=== PATIENT | male | born 1960 | race African-American/Black ===

== ENCOUNTER 2016-12-12 05:39 | Observation (INO) | payer OTHER ==
--- NOTE | ~2016-12-12 | DS ---
Unit #: [id number] #: [id number] Patient: IMTIAZ SOTO [id number] [address] [place], [place] [address] [id number] MR#: [id number] NAME: IMTIAZ SOTO ROOM: 57 Age: 56 Sex: M Admission Date: 12/12/2016 : 1960 Discharge Date: 12/13/2016 Attending Physician: Christiano Germain M.D. Primary Care Physician: [facility] DISCHARGE SUMMARY ADMISSION DIAGNOSES 1. Chest pain. 2. History of arteriosclerotic heart disease. 3. History of DVT, pulmonary embolism January 2014 with recurrent bilateral PEs in August 2015. 4. Hypertension. 5. Benign prostatic hypertrophy. 6. Reported heart catheterization May 2016 at [facility]. Patient was taking Brilinta but was not certain if he had had a stent. DISCHARGE DIAGNOSES 1. Chest pain. 2. History of arteriosclerotic heart disease. 3. History of DVT, pulmonary embolism January 2014 with recurrent bilateral PEs in August 2015. 4. Hypertension. 5. Benign prostatic hypertrophy. 6. Reported heart catheterization May 2016 at [facility]. Patient was taking Brilinta but was not certain if he had had a stent. HISTORY Mr. Soto is a 56-year-old black male from [place]. In our conversation yesterday, patient told me that he underwent coronary catheterization at [facility]. Today, he tells me that he sees Dr. Tafoya, so we will have patient follow up with Dr. Tafoya. Myocardial infarction was ruled out with serial troponins this admission. Echocardiogram showed EF of 35% to 40%. Stress test was negative for ischemia. The patient was hypertensive. Medications were adjusted. Hydralazine was changed to 25 mg b.i.d. His beta lupe was changed to Coreg 6.25 mg b.i.d. and Protonix 40 mg daily was ordered. He will follow up with Dr. Tafoya in 2 to 3 weeks. Appointment was made for , 02/01/2017 at 13:[address] Tafoya. DISCHARGE MEDICATIONS 1. Flomax 0.4 mg daily. 2. Coumadin 5 mg daily. 3. Zyrtec 10 mg daily. 4. Lipitor 80 mg daily. Cholesterol profile was obtained which showed a cholesterol of 80, triglycerides 62, LDL 32, HDL 36. 5. Hydralazine 25 mg b.i.d. 6. Zestril 40 mg daily. 7. Singulair 10 mg daily. 8. Tramadol 50 mg as needed for pain. 9. Brilinta 90 mg b.i.d. Unit #: [id number] #: [id number] Patient: IMTIAZ SOTO 10. Imdur 60 mg daily. To note, I had asked for old records from [facility] and received none. Possibility that this patient's heart catheterization was actually done at [facility] and not at [facility]. Patient's hemoglobin A1c was 5.9. TSH was 1.72. Dictated by... Addie Bloom.P.R.N. for Cassius Levy M.D. CHI/ranjit TD: 12/13/2016 17:21 JOB #: [id number] DISCHARGE SUMMARY Page 1 of 1 X X DISCHARGE SUMMARY
--- NOTE | ~2016-12-12 | HP ---
Unit #: [id number] #: [id number] Patient: IMTIAZ SOTO [id number] [facility] [address] [facility]. [place], [place] [address] [id number] E MR#: [id number] NAME: IMTIAZ SOTO ROOM: Age: 56 Sex: M Admission Date: 12/12/2016 : 1960 Attending Physician: Abdifatah Shields M.D. Primary Care Physician: [facility] HISTORY AND PHYSICAL CHIEF COMPLAINT Chest pain. HISTORY OF PRESENT ILLNESS Mr. Soto is a 56-year-old male who presented with complaints of chest discomfort. He states that through the night he had discomfort that woke him up. It was a band-like squeezing across both sides of his chest radiating down his left arm with tingling in his fingers associated with nausea, no vomiting, and diaphoresis. He states it occurred four times through the night, each time lasting 5-10 minutes. He took a pillow, put it against his chest, and just sort of continued to squeeze his chest until eventually the pain went away. He did not take any medications at home to make it go away. He does have a reported allergy to aspirin so he has not received any aspirin in the emergency room. PAST MEDICAL HISTORY 1. Pulmonary embolism with DVT 01/2014 with anticoagulation for seven months. Then, he had a recurrent bilateral right lower lobe/left lower lobe segmental PE in August 2015. 2. Hypertension. 3. Benign prostatic hypertrophy. 4. Arteriosclerotic heart disease with coronary catheterization May 2016. The patient is unaware if he received a stent but he is on Brilinta so we will obtain old records. PAST SURGICAL HISTORY Coronary catheterization May 2016 at [facility]. ALLERGIES Aspirin and Tylenol. HOME MEDICATIONS 1. Imdur 60 mg daily. 2. Flomax 0.4 daily. 3. Lipitor 80 mg daily. 4. Metoprolol tartrate 25 mg twice daily. 5. Singulair 10 mg daily. 6. Tramadol 50 mg twice daily. 7. Zyrtec 10 mg daily. 8. Coumadin 5 mg daily. 9. Brilinta 90 mg twice a day. 10. Hydralazine 10 mg twice a day. 11. Lisinopril 40 mg daily. Unit #: [id number] #: [id number] Patient: IMTIAZ SOTO FAMILY HISTORY The patient denies family history of arteriosclerotic heart disease. No MIs, no diabetes, no hypertension. No premature . SOCIAL HISTORY The patient is originally from [place], lives in the company of his and children. He is a lifelong nonsmoker and he does not drink alcohol. REVIEW OF SYSTEMS Negative for fevers, negative for chills, negative for recent weight loss, weight gain. No cataracts, no glaucoma, no difficulty hearing, no difficulty swallowing, no productive cough, no asthma, no emphysema, no melena, no bright red bleeding per rectum, no constipation, no diarrhea, no hematuria, no dysuria. No difficulty walking except patient states that he does have some discomfort that remains with assisted walking from his leg that had the DVT although he states that he can walk briskly. No seizures, no gait disturbance, no syncope, no presyncope, no skin disorders, no rash. PHYSICAL EXAMINATION GENERAL: Well developed, well nourished -[place] male who speaks Gabonese, in no acute distress. VITAL SIGNS: Temp 97.6, respirations 16, pulse 64, O2 saturation 96%, blood pressure 106/60, repeat of 143/86. Height 5 feet 6 inches, weight 81.8 kg, BMI 29. HEENT: Normocephalic, atraumatic. No xanthelasma. Pupils equal, round, reactive to light. Extraocular movements intact. NECK: Supple. No jugular venous distention, no elevated CVP, no thyromegaly. LUNGS: Clear to auscultation anteriorly and posteriorly all osuna. HEART: S1, S2. No S3 or S4. No murmurs, rubs or gallops. Normal sinus rhythm. ABDOMEN: Soft, nontender, nondistended. EXTREMITIES: No clubbing, cyanosis or edema. 2+ pulses bilaterally. SKIN: No rash. SPINE: No scoliosis. NEURO: Awake, alert, oriented x3. Speech clear and appropriate. Good historian. No facial drooping. Moving all extremities spontaneously with equal strength. DIAGNOSTIC STUDIES IMAGING: Chest x-ray demonstrates moderate lung volumes. Small amount of bibasilar atelectasis. Heart, mediastinum, great vessels and bony thorax unremarkable. LABORATORY: Chemistry - sodium 139, potassium 4.0, chloride 106, CO2 27, BUN 13, creatinine 1.0, glucose 136, total protein 6.6, albumin 3.7, AST 31, ALT 38. Patient had a cholesterol level done in September 2015 which showed a total cholesterol of 234, triglycerides of 257, LDL of 138. Coagulation - PT 33.1, INR 3.0, PTT 33.8, D-dimer of 380. Point of care troponins in the emergency room show troponin of less than 0.05 and a repeat of less than 0.05. Hemoglobin 14.9, hematocrit 45.8, white blood cell count 4.3, platelet count 119. Unit #: [id number] #: [id number] Patient: IMTIAZ SOTO CARDIOVASCULAR: 12-lead EKG shows normal sinus rhythm, ventricular rate of 67. T wave inversions in lead II, III, AVF, V5 and V6. No acute ST elevation, no acute ST depression. ASSESSMENT AND PLAN 1. Chest pain with two negative troponins, abnormal electrocardiogram: We will undergo Cardiolite treadmill stress testing with Lexiscan backup and 2D echo. 2. Hypertension. 3. Dyslipidemia. 4. History of recurrent bilateral pulmonary embolism, on anticoagulation: We will add a TSH, lipid panel and hemoglobin A1c to the blood in the lab, obtain the Cardiolite treadmill stress test and echo. Healthy heart diet after stress complete. If his stress test is positive for ischemia, undergo coronary catheterization. Dictated by Boston Bloom/catrachita TD: 12/12/2016 09:32 JOB #: [id number] HISTORY AND PHYSICAL Page 1 of 1 X X HISTORY AND PHYSICAL
--- NOTE | ~2016-12-12 | CR72 ---
[facility] A Service of [facility] & [facility] RADIOLOGY TEXT RESULTS PATIENT: IMTIAZ ESCALONA LOCATION: [place] [address] : [birth year] UNIT #: [id number] AGE: [address]: Christiano Germain MD SEX: M ORDER DR: [id number] [facility] [address] [place], [place] [address] [id number] E MR#: [id number] Acc #: [id number] NAME: IMTIAZ ESCALONA : 1960 SEX: M STUDY DATE/TIME: 12/12/2016 6:46 UNIT: NURIA ROOM: STUDY DESCRIPTION: CR Chest Single View Portable Attending Physician: Abdifatah Shields M.D. Ordering Physician: Abdifatah [id number] Cornelius Shields Primary Care Physician: [facility] MEDICAL IMAGING REPORT This report is preliminary unless electronic signature is present EXAM Portable chest. HISTORY Chest pain. COMPARISON 06/22/2016 FINDINGS Portable view of the chest demonstrates moderate lung volumes satisfactory technique. Small amount of bibasilar atelectasis. Heart, mediastinum, great vessels and bony thorax unremarkable. Dictated by... Chrissy Cohen M.D. THIS IS AN ELECTRONICALLY VERIFIED REPORT Chrissy Cohen M.D. at 12/12/2016 3:31 PM Tigre TD: 12/12/2016 08:31 JOB #: [id number] MEDICAL IMAGING REPORT Page 1 of 1 COPY
--- NOTE | ~2016-12-12 | ST ---
Unit #: [id number] #: [id number] Patient: IMTIAZ ESCALONA [id number] [address] [address] [id number] I MR#: [id number] NAME: IMTIAZ ESCALONA : 1960 SEX: M STUDY DATE/TIME: 12/12/2016 UNIT: [facility] [place] [facility] ROOM: 577 STUDY DESCRIPTION: Stress Test Attending Physician: Christiano Germain M.D. [facility] CARDIOLOGY REPORT EXAM Nuclear study DESCRIPTION OF PROCEDURE AND FINDINGS Baseline EKG normal sinus rhythm, nonspecific ST/T changes. Resting heart rate 60 per minute, blood pressure 147/102. This 56-year-old patient received 0.4 mg of Lexiscan intravenously. During the test no ischemic changes noted, no arrhythmias noted, blood pressure was stable. INTERPRETATION 1. Nondiagnostic EKG during Lexiscan. 2. No arrhythmias noted. 3. Stable blood pressure during the test. 4. Correlate with the Cardiolite study. Dictated by... Gloria Simms/tiffanie TD: 12/12/2016 22:13 JOB #: [id number] CARDIOLOGY REPORT Page 1 of 1 X Janice Cardoso MD CARDIOLOGY REPORT
--- NOTE | ~2016-12-12 | EKG ---
PATIENT: IMTIAZ ESCALONA UNIT #: [id number] Ventricular Rate: 67 BPM Atrial Rate: 67 BPM P-R Interval: 216 ms QRS Duration: 80 ms Q-T Interval: 362 ms QTC Calculation(Bezet): 382 ms P Tovey: 36 degrees Calculated R Tovey: 0 degrees Calculated T Tovey: -63 degrees Diagnosis Line: Sinus rhythm with 1st degree A-V block Diagnosis Line: T wave abnormality, consider inferior ischemia Diagnosis Line: Abnormal ECG Diagnosis Line: No previous ECGs available Diagnosis Line: Confirmed by ARIANNA BANGURA MD ([id number]) on 12/14/2016 Diagnosis Line: 10:26:29 AM INTERPRETING MD: SVETA BENTON
--- NOTE | ~2016-12-12 | TH ---
Unit #: [id number] #: [id number] Patient: IMTIAZ ESCALONA [id number] [address] [address] [id number] I MR#: [id number] NAME: IMTIAZ ESCALONA : 1960 SEX: M STUDY DATE/TIME: 12/12/2016 UNIT: [facility] ROOM: 577 STUDY DESCRIPTION: Imaging Study Attending Physician: Christiano Germain M.D. [facility] CARDIOLOGY REPORT EXAM Cardiolite study DESCRIPTION OF PROCEDURE This 56-year-old patient received 0.4 mg of Lexiscan intravenously followed by 35 mCi of technetium-99m Cardiolite and images were obtained according to a standard SPECT protocol. For rest images 11.28 mCi of Cardiolite were injected. Images were reviewed in both phases. FINDINGS Overall study quality is excellent. LV cavity size is normal in both images. There is no lung activity. RV is normal. Rotating raw data showed no significant artifact, soft tissue attenuation or GI uptake. Review of the SPECT images showed a normal homogeneous radiotracer concentration throughout the myocardium in both the stress and rest images. Gated images showed a normal LV wall thickening and wall motion with an estimated LV ejection fraction of 55%. Actually SPECT images showed a moderate decrease in a radiotracer concentration in a small inferoapical segment in the stress images. In the rest images this defect is fixed. IMPRESSION 1. Myocardial perfusion imaging is abnormal. 2. No stress-induced ischemia. 3. Intermediate likelihood of a small to medium sized inferoapical infarct. 4. Normal left ventricular dimensions. 5. Normal systolic left ventricular function with an estimated left ventricular ejection fraction of 55%. Dictated by... Gloria Simms/tiffanie TD: 12/12/2016 22:22 JOB #: [id number] Unit #: [id number] #: [id number] Patient: IMTIAZ ESCALONA CARDIOLOGY REPORT Page 1 of 1 X Janice Cardoso MD CARDIOLOGY REPORT
[~2016-12-12 05:39] MED LIST: ADALATCC; DICLOFENAC PO; HYDROXYZINE HCL10 MG PO; LISINOPRIL PO; MAGNESIUM500 MG PO; PROSTATE MED; TENORMIN50 MG PO; TRAMADOL HCL50 M2 PO; XARELTO20 MG PO; ZANAFLEX PO; ZYRTEC10 M2 PO
[2016-12-12 06:27] LABS: EOSINOPHIL# 0.4 X10e3 (0-0.7); EOSINOPHIL% 8.9 % (0.0-7.0); HEMATOCRIT 45.8 % (38.0-50.0); HEMOGLOBIN 14.9 gm/dL (13.0-16.0); LYMPHOCYTE# 1.8 X10e3 (1.0-3.5); LYMPHOCYTE% 41.1 % (17.0-45.0); MEAN CELL VOLUME 80.1 FL (83-96); MEAN CORPUSCULAR HEMOGLOBIN 26.1 PG (28-34); MEAN CORPUSCULAR HGB CONC 32.6 g/dL (30-36); MEAN PLATELET VOLUME 10.5 FL (6.5-11.5); MONOCYTE# 0.5 X10e3 (0-1.0); MONOCYTE% 11.5 % (3.0-12.0); NEUTROPHIL# 1.6 X10e3 (1.5-7.1); NEUTROPHIL% 37.5 % (40-75); PLATELET COUNT 119 X10e3 (140-420); RED BLOOD COUNT 5.71 X10e (3.90-5.60); RED CELL DISTRIBUTION WIDTH 14.7 % (11.0-15.5); WHITE BLOOD COUNT 4.3 X10e3 (4.0-10.5)
[2016-12-12 06:28] LABS: POC - CKMB 1.2 ng/mL (0.0-7.9); POC - TROPONIN <0.05 ng/mL (<=0.05)
[2016-12-12 06:31] LABS: DIFF IND NO
[2016-12-12 06:48] LABS: PARTIAL THROMBOPLASTIN TIME 33.8 SECONDS (23.5-31.3)
[2016-12-12 06:49] LABS: PROTHROMBIN TIME (PATIENT) 33.1 SECONDS (9.6-11.5)
[2016-12-12 07:02] LABS: ALBUMIN SERUM 3.7 g/dL (3.5-5.0); BILIRUBIN, DIRECT 0.1 mg/dL (0.0-0.2); BILIRUBIN,INDIRECT 0.7 mg/dL (0.0-0.9); BILIRUBIN,TOTAL 0.8 mg/dL (0.2-2.0); CALCIUM SERUM 8.8 mg/dL (8.4-10.2); GLOM FILT RATE Estimated 97.1 mL/min (>60); PROTEIN TOTAL SERUM 6.6 g/dL (6.0-8.3)
[2016-12-12 08:15] LABS: POC - CKMB <1.0 ng/mL (0.0-7.9); POC - TROPONIN <0.05 ng/mL (<=0.05)
[2016-12-12] MEDS ORDERED: COUMADIN5 MG PO (09:10)
[2016-12-12] MEDS ORDERED: FLOMAX0.4 M1 PO (09:11)
[2016-12-12] MEDS ORDERED: BRILINTA90 MG PO (09:11)
[2016-12-12] MEDS ORDERED: IMDUR PO (09:11)
[2016-12-12] MEDS ORDERED: HYDRALAZINE HCL10 MG PO (09:12)
[2016-12-12] MEDS ORDERED: LIPITOR80 MG PO (09:12)
[2016-12-12] MEDS ORDERED: LISINOPRIL PO (09:13)
[2016-12-12] MEDS ORDERED: METOPROLOL TART25 MG PO (09:13)
[2016-12-12] MEDS ORDERED: SINGULAIR PO (09:13)
[2016-12-12 10:57] LABS: CHOLESTEROL 80 mg/dL (0-200); HDL CHOLESTEROL 36 mg/dL (29-75); LDL CHOLESTEROL 32 mg/dL (-130); LDL/HDL RATIO 1 RATIO (0-4); TRIGLYCERIDES 62 mg/dL (10-160)
[2016-12-13] MEDS ORDERED: PROTONIX PO (16:05)
[2016-12-13] MEDS ORDERED: COREG6.25 MG PO (16:06)
== END 2016-12-13 19:00 | disposition home or self-care (01) ==
LOC: CED 05:39 → CEDOF 09:00 → C5C 09:00 → CEDOF 09:28 → CED 09:28 → C5C 14:41 → CEDOF 14:41 → C5C 12-13 19:00
PROVIDERS: Emergency Medicine; Internal Medicine Cardiovascular Disease
DX: R07.89 Other chest pain (principal); I25.10 Atherosclerotic heart disease of native coronary artery without angina pectoris; Z86.718 Personal history of other venous thrombosis and embolism; Z86.711 Personal history of pulmonary embolism; Z79.01 Long term (current) use of anticoagulants; I10 Essential (primary) hypertension; E78.5 Hyperlipidemia, unspecified; N40.0 Benign prostatic hyperplasia without lower urinary tract symptoms; I51.9 Heart disease, unspecified; I51.7 Cardiomegaly; J98.11 Atelectasis; Z88.6 Allergy status to analgesic agent
CPT/HCPCS: 36415; 71010; 78452; 80048; 80061; 80076; 82553; 82947; 83036; 83880; 84443; 84484; 85025; 85379; 85610; 85730; 93005; 93017; 93306; 99285; A9500; G0378; J2785

== ENCOUNTER 2017-03-24 21:26 | Emergency (ER) | payer OTHER ==
[~2017-03-24] VITALS: Ht 177.8 cm; Wt 89.8 kg
--- NOTE | ~2017-03-24 | CR181 ---
[facility] A Service of [facility] & [facility] RADIOLOGY TEXT RESULTS PATIENT: IMTIAZ ESCALONA LOCATION: [facility] : [birth year] UNIT #: [id number] AGE: [address]: FLETCHER PAULINO APRN SEX: M ORDER DR: [id number] [facility] [address] [facility] [place], [place] [address] [id number] E MR#: [id number] Acc #: [id number] NAME: IMTIAZ ESCALONA : 1960 SEX: M STUDY DATE/TIME: 03/24/2017 23:12 UNIT: TX ROOM: STUDY DESCRIPTION: CR Lumbar Spine 2 or 3 Views Attending Physician: Fletcher Paulino Aprn Ordering Physician: Fletcher Paulino Aprn Primary Care Physician: [facility] MEDICAL IMAGING REPORT This report is preliminary unless electronic signature is present EXAM Lumbar spine 3 views. HISTORY Low back pain today. No injury. FINDINGS 3 views of the lumbar spine demonstrate mild disc space narrowing at L5-S1. 2 mm retrolisthesis of L4 on L5. Mild hypertrophic changes from L3 to L5. No fracture. Straightening of the normal lumbar lordosis. IMPRESSION No acute findings. Mild disc space narrowing at L5-S1. Additional mild hypertrophic changes lower lumbar spine. Dictated by... Denzel Stanley M.D. THIS IS AN ELECTRONICALLY VERIFIED REPORT Denzel Stanley M.D. at 03/26/2017 4:44 AM DARIN/laurent TD: 03/25/2017 22:35 JOB #: [id number] MEDICAL IMAGING REPORT Page 1 of 1 COPY
[~2017-03-24 21:26] MED LIST changes: +BRILINTA90 MG PO; +COREG6.25 MG PO; +COUMADIN5 MG PO; +FLOMAX0.4 M1 PO; +HYDRALAZINE HCL10 MG PO; +IMDUR PO; +LIPITOR80 MG PO; +METOPROLOL TART25 MG PO; +PROTONIX PO; +SINGULAIR PO
== END 2017-03-25 00:16 | disposition home or self-care (01) ==
LOC: CFTX 21:26 → CED 21:26 → CFTX 22:08
DX: M54.41 Lumbago with sciatica, right side (principal); E11.9 Type 2 diabetes mellitus without complications; I11.9 Hypertensive heart disease without heart failure; Z86.718 Personal history of other venous thrombosis and embolism; Z88.8 Allergy status to other drugs, medicaments and biological substances; Z79.01 Long term (current) use of anticoagulants; Z79.891 Long term (current) use of opiate analgesic; Z79.899 Other long term (current) drug therapy
CPT/HCPCS: 72100; 96372; 99283; J1885